=== PATIENT | male | born 1980 | race Caucasian/White ===

== ENCOUNTER 2021-02-10 04:50 | Emergency (ER) | payer OTHER ==
--- NOTE | 2021-02-10 05:54 | EDM.PDOC ---
ED HPI GENERAL MEDICAL PROBLEM - General Chief Complaint: General Stated Complaint: R HAND PAIN Time Seen by Provider: 02/10/21 05:03 Source of Information: Reports: Patient History Limitations: Reports: No Limitations - History of Present Illness INITIAL COMMENTS - FREE TEXT/NARRATIVE: Pt. states that he fell about a month ago and has been using a brace. Tonight, he states that he was reaching with his hand and felt a popping sensation in his hand that radiates into the thumb and forefinger of the R hand. Denies any impact or trauma today. He states that the pain started when he attempted to reach around an object to put a bolt on. Pt. states that both incidents happened at work. He denies any injury elsewhere. He states that the discomfort has actually improved during the drive to [facility] from [place]. Denies any current tingling or discoloration to the digits of the R hand. Onset: Today Location: Reports: Upper Extremity, Right Severity: Mild Right Hand Pain Score (Numeric/FACES): 4 - Related Data Allergies Allergy/AdvReac Type Severity Reaction Status Date / Time No Known Allergies Allergy Verified 02/10/21 05:01 Home Meds: Home Meds Albuterol Sulfate [Albuterol Sulfate HFA] 2 inh INH Q4H PRN 02/10/21 [History] Budesonide/Formoterol Fumarate [Symbicort 160-4.5 Mcg Inhaler] 2 inh IH BID 02/10/21 [History] Cetirizine HCl [Zyrtec] 10 mg PO DAILY 02/10/21 [History] Ibuprofen [Advil] 800 mg PO BID 02/10/21 [History] Triamcinolone Acetonide [Nasacort] 1 spray NS DAILY 02/10/21 [History] Past Medical History Respiratory History: Reports: Asthma, Other (See Below) Other Respiratory History: environmental allergies. Social & Family History - Tobacco Use Tobacco Use Status *Q: Former Tobacco User Years of Tobacco use: 14 Used Tobacco, but Quit: Yes Month/Year Tobacco Last Used: 1 - Caffeine Use Caffeine Use: Reports: Soda - Recreational Drug Use Recreational Drug Use: No ED ROS GENERAL - Review of Systems Review Of Systems: See Below Musculoskeletal: Reports: Hand Pain Neurological: Reports: No Symptoms ED EXAM, GENERAL - Physical Exam Exam: See Below Exam Limited By: No Limitations General Appearance: Alert, WD/WN, No Apparent Distress Extremities: No Pedal Edema, Normal Capillary Refill, Other (No obvious crepitus noted. No deformity. No ecchymosis or edema.) Neurological: No Motor/Sensory Deficits. No: Sensory/Motor Deficit Course - Vital Signs Last Recorded V/S: Last Vital Signs Temp 36.4 C 02/10/21 04:51 Pulse 79 02/10/21 04:51 Resp 16 02/10/21 04:51 BP 135/82 02/10/21 04:51 Pulse Ox 98 02/10/21 04:51 - Orders/Labs/Meds Orders: Active Orders 24 hr Category Date Time Status Hand Comp Min 3V Rt [CR] Stat Exams 02/10/21 05:23 Ordered - Radiology Interpretation Free Text/Narrative:: Radiographs of the R hand obtained, No obvious lis deformity noted to R hand or fingers. Departure - Departure Time of Disposition: 06:22 Disposition: Home, Self-Care 01 Clinical Impression: Extensor tendinitis of hand - Discharge Information Instructions: Finger Sprain, Adult, [id number] Referrals: PCP,None [Primary Care Provider] - Forms: ED Department Discharge Additional Instructions: Home to rest. Ibuprofen 200mg 3 tabs every 6 hours as needed for pain Ice hand for 10 min every hour Work on improving range of motion to the finger. Sepsis Event Note (ED) - Evaluation Sepsis Screening Result: No Definite Risk - Focused Exam Vital Signs: Vital Signs Temp Pulse Resp BP Pulse Ox 02/10/21 04:51 36.4 C 79 16 135/82 98 - Problem List Review Problem List Initiated/Reviewed/Updated: Yes - My Orders Last 24 Hours: My Active Orders 02/10/21 05:23 Hand Comp Min 3V Rt [CR] Stat - Assessment/Plan Last 24 Hours: My Active Orders 02/10/21 05:23 Hand Comp Min 3V Rt [CR] Stat Plan: Home to rest. Ibuprofen 200mg 3 tabs every 6 hours as needed for pain Ice hand for 10 min every hour Work on improving range of motion to the finger.
== END 2021-02-10 06:20 | disposition home or self-care (01) ==
LOC: LL.ED 04:50
DX: M77.9 Enthesopathy, unspecified (principal); J45.909 Unspecified asthma, uncomplicated; Z87.891 Personal history of nicotine dependence; Z79.899 Other long term (current) drug therapy
CPT/HCPCS: 73130-RT; 99283